=== PATIENT | female | born 1985 | race Caucasian/White ===

== ENCOUNTER 2021-06-29 19:55 | Emergency (ER) | payer SELFPAY ==
[2021-06-29 20:47] LABS: HEMOGLOBIN 13.4 gm/dl (12.3-15.3); RED BLOOD COUNT 4.6 M/UL (4.00-5.10); WHITE BLOOD COUNT 17.7 K/UL (4.5-11.0)
[2021-06-29 21:10] LABS: BUN/CREATININE RATIO 20 (0-10)
[2021-06-29] MEDS ORDERED: ZOFRAN ODT 4 MG4 MG PO (23:52)
== END 2021-06-29 23:58 | disposition home or self-care (01) ==
LOC: ER1 19:55
PROVIDERS: Physician Assistant
DX: R10.9 Unspecified abdominal pain (principal); R11.2 Nausea with vomiting, unspecified; F17.200 Nicotine dependence, unspecified, uncomplicated; Z88.2 Allergy status to sulfonamides
CPT/HCPCS: 80053; 81001; 83690; 85025; 87086; 96374; 99284; C9113; J2405; Q9967